=== PATIENT | male | born 1970 | race Two or more races ===

== ENCOUNTER 2023-01-18 22:04 | Emergency (ER) | payer OTHER ==
[~2023-01-18] VITALS: Ht 185.4 cm; Wt 122.5 kg
[2023-01-18] MEDS ORDERED: GLUMETZA500 MG PO (22:19)
[2023-01-18] MEDS ORDERED: ZESTRIL2.5 MG PO (22:20)
[2023-01-18] MEDS ORDERED: PRAVASTATIN SOD10 MG PO (22:20)
[2023-01-19] MEDS ORDERED: CEPHALEXIN500 MG PO (00:42)
[2023-01-19] MEDS ORDERED: NABUMETONE750 MG PO (00:42)
== END 2023-01-19 00:53 ==
LOC: ER 22:04
DX: M25.521 Pain in right elbow (principal)